=== PATIENT | female | born 1960 | race African-American/Black ===

== ENCOUNTER → 2016-03-30 | Outpatient (REF) | LOC: M LAB 10:53 | PROVIDERS: ATTEND Nurse Practitioner Adult Health | DX: Z11.59 Encounter for screening for other viral diseases (principal) ==

== ENCOUNTER → 2018-12-14 | Outpatient (CLI) | payer OTHER ==
--- NOTE | 2018-12-14 15:24 | REP ---
Lumbar spine five views: There are no comparisons. There is mild scoliosis convex right. There is grade 1 compression deformity of the L1 vertebral body. There are no retropulsed fragments. Remainder of the vertebral body heights are normal. Vertebral alignment and interspacing are normal. There is no spondylolysis or spondylolisthesis. There is mild osteoarthritis in the posterior facets. The sacroiliac articulations are unremarkable. Impression: Grade 1 compression deformity of the L1 vertebral body. Mild facet osteoarthritis. Electronically Signed by Je Terrazas MD 12/14/2018 03:16 P
== END ==
LOC: M WUC 14:19
PROVIDERS: ATTEND Nurse Practitioner Family
DX: M54.5 Low back pain (principal)